=== PATIENT | female | born 1965 | race American Indian/Alaskan Native ===

== ENCOUNTER 2021-12-23 18:36 | Emergency (ER) | payer SELFPAY ==
[2021-12-23] MEDS ORDERED: predniSONE 20 MG TAB PO ONE (21:02)
[2021-12-23] MEDS ORDERED: diphenhydrAMINE 25 MG CAP PO ONE (21:02)
[2021-12-23] MEDS ORDERED: FAMOTIDINE 20 MG TAB PO ONE (21:02)
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
[2021-12-23 21:23] VITALS: BP 142/87
== END 2021-12-23 21:22 | disposition home or self-care (01) ==
LOC: ED 18:36
DX: T78.49XA Other allergy, initial encounter (principal); X58.XXXA Exposure to other specified factors, initial encounter
CPT/HCPCS: 99283

== ENCOUNTER 2022-01-02 10:41 | Emergency (ER) | payer SELFPAY ==
[2022-01-02] MEDS ORDERED: SULFAMETHOXAZOLE/TRIMETHOPRIM 800/160MG DS TAB PO ONE (12:07)
[2022-01-02] MEDS ORDERED: HYDROcodone/ACETAMINOPHEN 5-325 MG TAB PO ONE (12:07)
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
[2022-01-02] MEDS ORDERED: KETOROLAC 60 MG/2 ML INJ IM ONE (12:28)
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
[2022-01-02 12:50] LABS: Basophils # (Auto) 0.1 K/mm3 (0.0-0.1); Basophils % (Auto) 0.4 % (0.0-1.8); Eosinophils # (Auto) 1.1 K/mm3 (0.0-0.4); Eosinophils % (Auto) 7.5 % (0.0-4.3); Hemoglobin 12.7 gm/dl (10.1-14.3); Lymphocytes # (Auto) 1.6 K/mm3 (1.2-5.4); Lymphocytes % (Auto) 11.4 % (13.4-35.0); Mean Corpuscular HGB Conc 32 % (30-34); Mean Corpuscular Volume 89 fl (79-97); Monocytes # (Auto) 0.8 K/mm3 (0.0-0.8); Monocytes % (Auto) 5.7 % (0.0-7.3); Platelet Count 368 K/mm3 (140-440); Red Blood Count 4.48 M/mm3 (3.65-5.03); Red Cell Distribution Width 15.7 % (13.2-15.2)
[2022-01-02 13:01] LABS: Alanine Aminotransferase 15 units/L (7-56); Albumin 4.1 g/dL (3.9-5); BUN/Creatinine Ratio 13; Blood Urea Nitrogen 10 mg/dL (7-17); Calcium 9.1 mg/dL (8.4-10.2); Hemolysis Index 15
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
[2022-01-02 16:01] LABS: Amphetamine Screen,Urine Negative; Benzodiazepines Screen,Urine Negative; Cocaine Screen,Urine Negative; Methadone Screen,Urine Negative; Opiate Screen,Urine Negative
[2022-01-02 16:02] LABS: Bilirubin,Urine NEG (Negative); Blood,Urine NEG (Negative); Color,Urine Yellow (Yellow); Mucus,Urine FEW /HPF; Protein,Urine <15 mg/dL mg/dL (Negative); Urobilinogen,Urine < 2.0 mg/dL (<2.0)
[2022-01-02 16:15] LABS: Cannabinoid Screen,Urine Positive
[2022-01-02 17:02] VITALS: BP 129/83
== END 2022-01-02 17:01 | disposition home or self-care (01) ==
LOC: ED 10:41
DX: S22.32XA Fracture of one rib, left side, initial encounter for closed fracture (principal); S22.31XA Fracture of one rib, right side, initial encounter for closed fracture; L02.415 Cutaneous abscess of right lower limb; L03.115 Cellulitis of right lower limb; F31.9 Bipolar disorder, unspecified; M54.10 Radiculopathy, site unspecified; V87.7XXA Person injured in collision between other specified motor vehicles (traffic), initial encounter; Y93.89 Activity, other specified; Y92.488 Other paved roadways as the place of occurrence of the external cause; Y99.8 Other external cause status
CPT/HCPCS: 36415; 71046; 74176; 80053; 80307; 81001; 85025; 87086; 96372; 99284; J1885